=== PATIENT | male | born 1955 | race Caucasian/White ===

== ENCOUNTER 2016-09-18 06:26 | Inpatient (IN) ==
--- NOTE | 2016-09-17 20:17 | Discharge Summary ---
<Татьяна Burden - Last Filed: 09/17/16 20:13> Date of Encounter: 09/19/16 - Discharge Diagnosis (1) Left rotator cuff tear arthropathy Priority: Primary Status: Acute (2) GERD (gastroesophageal reflux disease) Priority: Secondary Status: Chronic Qualifiers: Esophagitis presence: esophagitis presence not specified Qualified Code(s) : K21.9 - Gastro-esophageal reflux disease without esophagitis - Discharge Medications Home Medications: HYDROcodone/Acet 5/325 mg [[place] 5-325 mg] 1 - 2 tab PO Q6H PRN #40 tab [Rx] Aspirin 81 mg PO DAILY 09/18/16 [History] Chromium Picolinate 1,000 mcg PO DAILY 09/18/16 [History] Fexofenadine HCl [Allergy Relief] 180 mg PO DAILY 09/18/16 [History] Naproxen [Naprosyn] 500 mg PO BID 09/18/16 [History] Niacin [Niacor] 500 mg PO DAILY 09/18/16 [History] Pyridoxine HCl [Vitamin B-6] 250 mg PO DAILY 09/18/16 [History] Ranitidine HCl [Zantac] 150 mg PO DAILY 09/18/16 [History] Allergies/Adverse Reactions: Allergies acetaminophen [From Percocet] Allergy (Verified 09/18/16 07:22) Hallucinating Oxycodone [From Percocet] Allergy (Verified 09/18/16 07:22) Hallucinating clarithromycin [From Biaxin] Adverse Reaction (Verified 09/18/16 07:22) Nausea clindamycin Adverse Reaction (Verified 09/18/16 07:22) Nausea tramadol Adverse Reaction (Verified 09/18/16 07:22) Nausea Primary care physician: Madie Hunt CNP - Patient Status Disposition: Home, Self-Care Condition: Good - Discharge Instructions Follow Up With: Mickey Grant MD [Partnered Physician] - 10/17/16 10:45 am Татьяна Burden PAC [Physician Editorial Writer] - 09/28/16 9:45 am Madie Hunt CNP [Primary Care Provider] - - Hospital Course Hospital course: Mr. Srivastava is a 61 year old male - Time Spent with Patient Total time spent providing and/or coordinating discharge services: <Mickey Grant - Last Filed: 09/19/16 06:22> Date of Encounter: 09/19/16 Time of Encounter: 06:22 - Discharge Diagnosis (1) Left rotator cuff tear arthropathy Priority: Primary Status: Acute (2) GERD (gastroesophageal reflux disease) Priority: Secondary Status: Chronic Qualifiers: Esophagitis presence: esophagitis presence not specified Qualified Code(s) : K21.9 - Gastro-esophageal reflux disease without esophagitis Primary care physician: Madie Hunt CNP - Patient Status Functional capacity at discharge: independent ambulation Overall status at discharge: patient is progressing back to baseline - Hospital Course Hospital course: Mr. Srivastava is a 61 year old male The patient had an uneventful postoperative course. They received antibiotics and physical therapy and were discharged in stable condition. There will follow -up in the office in 2 weeks. - Time Spent with Patient Total time spent providing and/or coordinating discharge services:
--- NOTE | 2016-09-18 06:43 | History & Physical Report ---
Date of Encounter: 09/18/16 Time of Encounter: 06:42 24 Hour HP Update - Instructions Instructions: If the History and Physical is less than 30 days old and was completed prior to A.M. admission and or procedure and has NOT been updated on calendar day of procedure please complete this update prior to performing procedure. - Update Patient reports changes in Medical Condition: No Changes in assessment/condition: No Changes in Medication: No Preop tests/diagnostics Reviewed: Yes Surgery Remains Indicated: Yes Consent for Planned Operative Procedure(s) Verified: Yes - Pre-Operative Checklist Preoperative Checklist Indicated: No Prophylactic Antibiotic Ordered: Yes Is VTE Prophylaxis Indicated?: Yes
[2016-09-18] MEDS ORDERED: CeFAZolin Pre 2,000 MG/100 ML 2,000 MG/100 ML BAG IVPB ONE (07:06)
[2016-09-18] MEDS ORDERED: Ringers Solution, Lactated 1,000 ML IVC SCH ×2 (07:15→10:09)
[2016-09-18] MEDS ORDERED: *HR* Midazolam HCl 2 MG/2 ML VIAL ONE ×2 (07:16→07:47)
[2016-09-18] MEDS ORDERED: *HR* FentaNYL (PF) 100 MCG/2 ML VIAL ONE (07:16)
[2016-09-18] MEDS ORDERED: *HR* Succinylcholine 200 MG/10 ML VIAL IVP ONE (07:16)
[2016-09-18] MEDS ORDERED: Lidocaine -MPF 4% 5 ML AMPUL ONE (07:16)
[2016-09-18] MEDS ORDERED: *HR* Propofol 200 MG/20 ML VIAL IVP ONE (07:16)
[2016-09-18] MEDS ORDERED: *HR* Phenylephrine 10 MG/ML VIAL ONE (07:16)
[2016-09-18] MEDS ORDERED: Dexamethasone 4 MG/ML VIAL ONE ×2 (07:16→07:44)
[2016-09-18] MEDS ORDERED: Lidocaine -MPF 2% 2 ML VIAL ONE ×2 (07:16→07:42)
[2016-09-18] MEDS ORDERED: Ondansetron 4 MG/2 ML VIAL ONE (07:16)
--- NOTE | 2016-09-18 07:44 | Anesthesia Evaluation PreOp ---
Date of Encounter: 09/18/16 Time of Encounter: 07:35 - Past History Planned Operation: Left Total Shoulder Replacement Cardiac History: HTN, Hyperlipidemia Pulmonary History: Denies Any Significant HX TUBE DRAW HELPER History: Denies Any Significant HX Other Medical History: GERD Anesthesia History: No Prior Anesthetic Complications Alcohol Use: none Drug use: none Medications and Allergies HYDROcodone/Acet 5/325 mg [[place] 5-325 mg] 1 - 2 tab PO Q6H PRN #40 tab [Rx] Aspirin 81 mg PO DAILY 09/18/16 [History] Chromium Picolinate 1,000 mcg PO DAILY 09/18/16 [History] Fexofenadine HCl [Allergy Relief] 180 mg PO DAILY 09/18/16 [History] Naproxen [Naprosyn] 500 mg PO BID 09/18/16 [History] Niacin [Niacor] 500 mg PO DAILY 09/18/16 [History] Pyridoxine HCl [Vitamin B-6] 250 mg PO DAILY 09/18/16 [History] Ranitidine HCl [Zantac] 150 mg PO DAILY 09/18/16 [History] Allergies acetaminophen [From Percocet] Allergy (Verified 09/18/16 07:22) Hallucinating Oxycodone [From Percocet] Allergy (Verified 09/18/16 07:22) Hallucinating clarithromycin [From Biaxin] Adverse Reaction (Verified 09/18/16 07:22) Nausea clindamycin Adverse Reaction (Verified 09/18/16 07:22) Nausea tramadol Adverse Reaction (Verified 09/18/16 07:22) Nausea - Meds/Allergy Pre-op Review Medications Reviewed: Yes Allergies Reviewed: Yes Beta Blockers on Current Med List: No Anesthesia Results - Labs Laboratory Tests 09/04/16 09/04/16 08:52 08:52 Hgb 14.3 Hct 42.2 Plt Count 255 Sodium 139 Potassium 4.8 H BUN 18 Creatinine 0.78 - Imaging EKG: report reviewed Anesthesia Exam O2 Sat Height 1.47 m Height 1.47 m Height 1.47 m Weight 80.286 kg Weight 80.286 kg Weight 80.286 kg O2 Sat by Pulse Oximetry 98 Vital Signs Temp Pulse Resp BP Pulse Ox 97.9 F 71 18 149/88 98 09/18/16 06:40 09/18/16 06:40 09/18/16 06:40 09/18/16 06:40 09/18/16 06:40 Height: 5'8 Weight: 172 lbs NPO (# of Hours): MN - HEENT Pupil (Motor): Pupils equal, EOMI Mallampati: II Teeth: Normal Oral Opening: Greater than 3 - TUBE DRAW HELPER LOC: Oriented TUBE DRAW HELPER Motor: Normal RUE, Normal LUE, Normal RLE, Normal LLE, Normal Face TUBE DRAW HELPER Sensory: Normal: RUE, LUE, RLE, LLE, Face - Cardiac Rhythm: Regular Murmur: None JVD: No Carotid Bruit: No - Pulmonary Breath Sounds: bilateral Clear Respiratory Effort: Symmetrical Anesthesia Assess/Plan ASA Score: 2 Modified Martin Scale for Level of Consciousness: Cooperative, oriented, and tranquil Anesthetic Plan: General, Regional Monitoring Plan: Standard Monitors Recovery Plan: PACU (Discussed GA and Supraclavicular Block, agrees to proceed)
[2016-09-18] MEDS ORDERED: Tetracaine/PF 20 MG/2 ML AMPUL SPINA ONE (07:48)
[2016-09-18] MEDS ORDERED: Famotidine 20 MG/2 ML VIAL ONE (07:48)
[2016-09-18] MEDS ORDERED: *HR* HYDROmorphone (PF) 1 MG/ML SYRINGE IVP PRN ×2 (08:41→10:09)
[2016-09-18] MEDS ORDERED: *HR* Promethazine 25 MG/ML VIAL IVP PRN (08:41)
--- NOTE | 2016-09-18 08:44 | Anesthesia Procedures ---
Date of Encounter: 09/18/16 Time of Encounter: 08:15 Procedures: Anesthesia - Nerve Block Procedure Date: 09/18/16 Time: 08:15 Allergies/Adv Reactions: percocet, biaxin, clindamycin,tramadol Pre-op Diagnosis: left shoulder arthritis Surgical Procedure: left total shoulder arthroplasty Checklist: Correct Patient Identifier, Correct procedure, History checked Correct side: Left Blood Thinner: No Monitor Applied: EKG, BP, Pulse Oximetry Supplemental Oxygen via Nasal Cannula (L/min): 2 Sedation: Versed (mg): 4 Sedation: Fentanyl (mcg): 100 Indication: Post Op Analgesia Pre-op Neuro Deficits: No Block Type: Supraclavicular (intercostal brachial and superifical cervical plexus ) Catheter placed: No Sterile Technique: Yes Ultrasound used: Yes Anatomy identified: Yes Visual spread of Local: Yes Neuro Stimulation: Yes Nerve Stimulator Range: 0.2 - 0.4 mA Blood on Needle Aspiration: No Smooth Injection of Local: Yes Pain with Injection of Local: No Prep: Chlorhexadine Needle: 22 x 50 mm Stimuplex Local: Tetracaine (bupivicaine 0.5% + tetracaine 1% ( 20mg) per dr. zhang ), Other Volume (cc): 30 Number of Attempts: 1 Complications: None/effective block Vitals: Vital Signs - Last 8 Hours Temp Pulse Resp BP Pulse Ox 09/18/16 08:18 64 122/76 99 09/18/16 07:57 68 134/88 100 09/18/16 06:40 97.9 F 71 18 149/88 98 Intake and Output 09/17/16 09/18/16 09/18/16 23:59 07:59 15:59 Other: Weight 80.286 kg Patient Weight 09/18/16 23:59 Weight 80.286 kg Comments: per dr. spaulding request
--- NOTE | 2016-09-18 09:01 | Orthopedic Operative Note ---
Date of procedure: 09/18/16 Pre-op diagnosis: Left shoulder cuff tear arthropathy Post-op diagnosis: same Procedure: Procedure: Left Total Shoulder Replacment Reverse, Estimated blood loss: 100 cc Hardware:Arthrex large glenoid baseplate, 2 4.5 screws. 1 6.5 screw, 42 lateral glenosphere, 10 humeral stem, poly insert 3 Exam Under anesthesia: Full motion of instability Procedural Notes: Irreparable tear supraspinatus tendon. Operative procedure: The patient was brought to the operating room and placed on the operating room table. After general anesthesia was administered the operative shoulder was examined. Findings were noted. The patient was placed in the modified beachchair position. All pressure points were padded appropriately. And the head was stabilized in the neutral position. The operative extremity was prepped and draped in the sterile surgical fashion. The patient received IV antibiotics prior to skin incision. A standard deltopectoral approach was made to the operative shoulder. Incision was made to the skin and subcutaneous tissue,hemo stasis was obtained with Bovie cautery. Using careful blunt dissection the cephalic vein was identified and mobilized medially. The deltopectoral interval was developed and the clavipectoral fascia was incised. The subscap was released off the lesser tuberosity and tagged with #2 FiberWire suture. The humerus was dislocated patient noted to have irreparable tear supraspinatus tendon, and the humeral cut was made along the anatomic neck. Anterior and posterior Bankart retractors were placed to expose the glenoid. The glenoid guide was seated and the centering hole was made. It was reamed with the appropriate reamer. The large baseplate was seated and secured with (2) 4.5 screws and one 6.5 screw. The baseplate was irrigated and dried and the 22 lateral Glenosphere was seated and secured with the Galdamez taper. The Galdamez taper was tested and found to be secure the humerus was redislocated and prepared with the diaphyseal reamers, followed by a broaching process up to the appropriate size and in the patient's anatomic version. The metaphyseal reamer was then utilized. Trial reduction found the shoulder to be relocatable. Trial components were removed and drill holes were placed in the lesser tuberosity. They were filled with #5 FiberWire suture relator subscap repair. The appropriate 10 stem was impacted in place in the patient's anatomic version. Trial reduction found the shoulder to be relocatable and stable with the appropriate 3. Trial component was removed and the realX was seated and secured the shoulder was reduced. The shoulder had excellent motion and excellent stability and no evidence of dislocation. The deep tissue was irrigated with pulse irrigation. The subscap was repaired. The deltopectoral interval was closed with a running #1 PDS suture, subcutaneous tissue was irrigated and closed with 0 PDS suture, the skin was closed with Dermabond. The patient was placed in a sterile dressing, abduction brace and extubated. The patient was then transferred to the recovery room in stable condition. Anesthesia: GALLITO Surgeon: Mickey Grant Doctor Of Osteopathy: Татьяна Burden Condition: stable Disposition: PACU
[2016-09-18 09:49] LABS: Hematocrit 40.8 % (37.5-50.1); Hemoglobin 13.8 g/dL (12.9-16.9)
--- NOTE | 2016-09-18 10:06 | Anesthesia Evaluation Post Op ---
Date of Encounter: 09/18/16 Time of Encounter: 10:05 - Vital Signs Vital Signs: Vital Signs/O2 Sat/Glucose, Most Current Temp Pulse Resp BP Pulse Ox 09/18/16 09:55 60 16 118/83 98 09/18/16 09:45 97.0 F L 56 12 128/91 100 09/18/16 09:35 57 12 115/87 100 09/18/16 09:25 57 12 126/78 100 09/18/16 09:15 97.7 F 60 12 117/87 100 09/18/16 08:18 64 122/76 99 09/18/16 07:57 68 134/88 100 09/18/16 06:40 97.9 F 71 18 149/88 98 - Lungs Lungs: Clear Ascult./Percussion - Airway Airway: Non-obstructed - Cardiovascular Regular Rate - Mental Status Mental Status: Alert & Oriented, Answers Appropriately - Pain Pain Scale: 0 - Nausea Vomiting Nausea Vomiting: Not Present - Hydration Hydration: Tolerates oral liquids - Discharge PostOp Status: Transfer Patient to floor
[2016-09-18] MEDS ORDERED: Temazepam 15 MG CAPSULE PO PRN (10:09)
[2016-09-18] MEDS ORDERED: Ondansetron 4 MG/2 ML VIAL IVP PRN (10:09)
[2016-09-18] MEDS ORDERED: CHROMIUM PICOLINATE 1000 MCG PO SCH (10:09)
[2016-09-18] MEDS ORDERED: *HR* HYDROcodone/Acet 5/325 mg TABLET PO PRN (10:09)
[2016-09-18] MEDS ORDERED: Sennosides 8.6 MG TABLET PO PRN (10:09)
[2016-09-18] MEDS ORDERED: MOM Conc 10 ML UD.LIQ PO PRN (10:09)
[2016-09-18] MEDS ORDERED: Naloxone 0.4 MG/ML INJ IVP PRN (10:09)
[2016-09-18] MEDS ORDERED: Albuterol Neb 1.25 MG/3 ML VIAL IH ONE (10:09)
[2016-09-18] MEDS: Niacin (24 HR) 500 MG TAB.ER.24H PO SCH (10:44)
[2016-09-18] MEDS: Loratadine 10 MG TABLET PO SCH (10:44)
[2016-09-18] MEDS: Aspirin 81 MG TAB.CHEW PO SCH (10:44)
[2016-09-18] MEDS: Pyridoxine (B-6) 50 MG TABLET PO SCH (10:45)
[2016-09-18] MEDS: Famotidine 20 MG TABLET PO SCH (10:45)
[2016-09-18] MEDS: ceFAZolin 2,000 MG in D5% in Water 100 ML IVPB SCH ×2 (14:05→23:31)
[2016-09-18] MEDS ORDERED: *HR* Enoxaparin 30 MG/0.3 ML SYRINGE SQ SCH (18:00)
[2016-09-18] MEDS: *HR* Enoxaparin 30 MG/0.3 ML SYRINGE SQ SCH (18:33)
[2016-09-19 05:23] LABS: Hematocrit 41.5 % (37.5-50.1); Hemoglobin 14.1 g/dL (12.9-16.9)
[2016-09-19] MEDS: *HR* Enoxaparin 30 MG/0.3 ML SYRINGE SQ SCH (05:32)
--- NOTE | 2016-09-19 06:23 | Orthopedics Progress Note ---
Date of Encounter: 09/19/16 Time of Encounter: 06:23 - Assessment and Plan (1) Left rotator cuff tear arthropathy Current Visit: Yes Status: Acute (2) GERD (gastroesophageal reflux disease) Current Visit: Yes Status: Chronic Qualifiers: Esophagitis presence: esophagitis presence not specified Qualified Code(s) : K21.9 - Gastro-esophageal reflux disease without esophagitis Subjective Interval history: Patient was seen this morning doing well without complaints. Afebrile vital signs stable. Operative extremity: Neurovascularly intact Dressing clean dry and intact Calves nontender Assessment and plan: Continue with postoperative care Hematocrit 41 discharged today Objective Vital signs: Vital Signs Temp Pulse Resp BP Pulse Ox 09/19/16 04:00 98.4 F 76 17 115/70 98 09/19/16 00:00 97.6 F 73 15 113/75 98 09/18/16 20:00 98.0 F 78 15 111/72 99 09/18/16 14:03 97.6 F 70 16 116/83 100 09/18/16 12:41 97.3 F L 67 16 120/68 100 09/18/16 11:26 96.7 F L 63 14 112/74 100 09/18/16 10:54 16 100 09/18/16 10:48 97.0 F L 61 14 115/80 100 09/18/16 10:25 97.0 F L 60 14 120/81 100 09/18/16 10:05 97.0 F L 57 16 134/84 98 09/18/16 09:55 60 16 118/83 98 09/18/16 09:45 97.0 F L 56 12 128/91 100 09/18/16 09:35 57 12 115/87 100 09/18/16 09:25 57 12 126/78 100 09/18/16 09:15 97.7 F 60 12 117/87 100 09/18/16 08:18 64 122/76 99 09/18/16 07:57 68 134/88 100 09/18/16 06:40 97.9 F 71 18 149/88 98 Intake and Output 09/18/16 09/18/16 09/19/16 15:59 23:59 07:59 Intake Total 0 / 0 800 / 800 100 / 100 Output Total 425 / 425 1150 / 1150 Balance -425 / -425 -350 / -350 100 / 100 Intake: IV Fluids 100 / 100 100 / 100 Ancef 2,000 MG In 100 / 100 100 / 100 Dextrose 5% 100 ML @ 200 mls/hr IVPB Q8H [facility] Rx#: [id number] Oral 0 / 0 700 / 700 Output: Urine 325 / 325 1150 / 1150 Estimated Blood Loss 100 / 100 Other: # Voids 1 - Labs CBC & BMP: 09/19/16 04:59 - VTE Documentation of Mechanical Device: Venous foot pump, device Consult Discharge Plan - Plan Referrals: Mickey Grant MD [Partnered Physician] - 10/17/16 10:45 am Татьяна Burden, JEFRY [Physician Bottle Capping Machine Operator] - 09/28/16 9:45 am Madie Hunt CNP [Primary Care Provider] -
[2016-09-19 06:41] VITALS: BP 103/62
[2016-09-19] MEDS: Pyridoxine (B-6) 50 MG TABLET PO SCH (08:23)
[2016-09-19] MEDS: Famotidine 20 MG TABLET PO SCH (08:24)
[2016-09-19] MEDS: Aspirin 81 MG TAB.CHEW PO SCH (08:25)
[2016-09-19] MEDS: Niacin (24 HR) 500 MG TAB.ER.24H PO SCH (08:25)
[2016-09-19] MEDS: Loratadine 10 MG TABLET PO SCH (08:25)
== END 2016-09-19 09:42 | disposition home or self-care (01) | DRG 483 ==
LOC: SAMDAY 06:26 → 3NENU 10:09
PROVIDERS: ADMIT Orthopaedic Surgery; ATTEND Orthopaedic Surgery